=== PATIENT | female | born 1955 | race Caucasian/White ===

== ENCOUNTER 2024-01-17 10:38 | Observation (INO) ==
[2024-01-17] MEDS: Buffered Lidocaine 1% SYRIN 1 ml INTRADERM ONE (10:07)
[~2024-01-17 10:38] MED LIST: Naloxone 0.4 mg VIAL 0.4 mg/ml 1 ml VIAL IV PRN
[2024-01-17] MEDS ORDERED: Propofol 10 MG/ML 20 ML BTL ONE (10:46)
[2024-01-17] MEDS ORDERED: Lidocaine 2% PF 5 ML VIAL ONE (10:46)
[2024-01-17] MEDS ORDERED: Tranexamic Acid 1 GM/100ML BAG 2,000 MG/200 ML BAG IV ONE (10:54)
[2024-01-17] MEDS ORDERED: Famotidine IV 10 MG/ML 2 ml VIAL (20 mg) ONE (10:55)
[2024-01-17] MEDS ORDERED: ceFAZolin 2 GM PREMIX 2 GM/50 ML BAG ONE (10:55)
[2024-01-17] MEDS: Lactated Ringers 1000 ml BAG 1,000 ML IV SCH ×2 (11:25→17:27)
[2024-01-17] MEDS: Famotidine IV 10 MG/ML 2 ml VIAL (20 mg) IV ONE (11:25)
[2024-01-17 11:27] LABS: Rapid COVID-19 Molecular Undetected (Undetected)
[2024-01-17] MEDS ORDERED: Rocuronium 50 mg VIAL 10 mg/ml 5 ml VIAL (50 mg) ONE (11:35)
[2024-01-17] MEDS ORDERED: Midazolam 2 mg/2 ml VIAL 1 mg/ml 2 ml VIAL (2 mg) ONE (11:36)
[2024-01-17] MEDS ORDERED: fentaNYL 250 mcg/5 ml 50 MCG/ML 5 ml VIAL (250 MCG) ONE (11:36)
[2024-01-17] MEDS ORDERED: ROPIVACAINE 5 MG/ML 30 ML BTL (0.5%) ONE (11:55)
[2024-01-17] MEDS ORDERED: Dexamethasone IV 4 MG/ML VIAL 1 ml VIAL ONE (12:33)
[2024-01-17] MEDS ORDERED: Ondansetron 4 mg VIAL 2 MG/ML 2 ml VIAL ONE ×2 (12:33→16:51)
[2024-01-17] MEDS ORDERED: HYDROmorphone 0.5 MG/0.5 ML SYRINGE ONE (12:51)
[2024-01-17] MEDS ORDERED: Acetaminophen IV 1 GM/100ML 1,000 MG/100 ML BAG IV ONE (12:53)
[2024-01-17] MEDS ORDERED: Lactulose 30 ml UDC PO PRN (15:11)
[2024-01-17] MEDS ORDERED: Morphine 2 MG/ML SYRINGE IV PRN (15:11)
[2024-01-17] MEDS ORDERED: Calcium Carb (TUMS) 500 mg CHEW TAB PO PRN (15:11)
[2024-01-17] MEDS ORDERED: Magnesium Hydroxide LIQ 30 ML UDC PO PRN (15:11)
[2024-01-17] MEDS ORDERED: fentaNYL 100 mcg/2 ml 50 MCG/ML VIAL ONE (15:29)
[2024-01-17] MEDS: fentaNYL 100 mcg/2 ml 50 MCG/ML VIAL IV PRN (15:35)
[2024-01-17] MEDS: Ondansetron 4 mg VIAL 2 MG/ML 2 ml VIAL IV PRN (16:53)
[2024-01-17] MEDS: Magnesium Hydroxide LIQ 30 ML UDC PO SCH (20:32)
[2024-01-17] MEDS: ceFAZolin 2 GM PREMIX 2 GM/50 ML BAG IV SCH (20:35)
[2024-01-17] MEDS: Ondansetron ODT 4 mg TAB 4 MG TAB PO PRN (21:08)
[2024-01-18 06:19] LABS: Hemoglobin 12.7 g/dL (11.5-14.3); Mean Platelet Volume 8.3 fL (7.5-11.2); Platelet Count 258 10^3/uL (150-450)
[2024-01-18 06:37] LABS: Calcium 8.7 mg/dL (8.6-10.3); Creatinine, Serum 1.02 mg/dL (0.51-0.95); Potassium 4.2 mmol/L (3.5-5.0); eGFR CKD-EPI 60.7 (>60)
[2024-01-18] MEDS: Vitamin THERAPEUTIC TAB PO SCH (08:37)
[2024-01-18 10:21] VITALS: BP 112/59
[2024-01-18] MEDS: Ondansetron 4 mg VIAL 2 MG/ML 2 ml VIAL IV PRN (11:40)
== END 2024-01-18 14:00 | disposition home or self-care (01) ==
LOC: SSU 10:38 → OR 10:38
PROVIDERS: ADMIT Orthopaedic Surgery Adult Reconstructive Orthopaedic Surgery; ATTEND Orthopaedic Surgery Adult Reconstructive Orthopaedic Surgery